=== PATIENT | male | born 1980 | race Caucasian/White ===

== ENCOUNTER 2019-01-11 00:41 | Emergency (ER) | payer SELFPAY ==
[~2019-01-11] VITALS: Ht 175.3 cm; Wt 68.2 kg
[2019-01-11 00:45] VITALS: Ht 175.3 cm; Wt 68.2 kg
[2019-01-11] MEDS ORDERED: XANAX1 MG PO (00:46)
[2019-01-11] MEDS ORDERED: HYDROCODONE-A1 UDTA2 PO (01:32)
[2019-01-11 02:10] VITALS: BP 130/91
[2019-01-14 10:13] VITALS: Ht 175.3 cm; Wt 68.2 kg
== END 2019-01-11 02:02 | disposition home or self-care (01) ==
LOC: D.ER 00:41
DX: S62.331A Displaced fracture of neck of second metacarpal bone, left hand, initial encounter for closed fracture (principal); X58.XXXA Exposure to other specified factors, initial encounter; Y93.89 Activity, other specified; Y92.89 Other specified places as the place of occurrence of the external cause

== ENCOUNTER 2019-01-14 09:10 | Day surgery (SDC) | payer SELFPAY ==
[~2019-01-14] VITALS: Ht 175.3 cm; Wt 65.8 kg
[~2019-01-14 09:10] MED LIST: HYDROCODONE-A1 UDTA2 PO; XANAX1 MG PO
[2019-01-14] MEDS ORDERED: TOPROL XL50 MG PO (10:06)
[2019-01-14 10:13] VITALS: Ht 175.3 cm; Wt 65.8 kg
[2019-01-14] MEDS ORDERED: PERCOCET 5-3251 TAB PO (12:16)
[2019-01-14] MEDS ORDERED: VISTARIL50 MG PO (12:17)
[2019-01-14] MEDS ORDERED: DURICEF500 MG PO (12:17)
--- NOTE | 2019-01-14 14:09 | NUR ---
1330 PT C/O SEVERE PAIN IN HAND AND ASKING FOR PAIN MEDICATION.
--- NOTE | 2019-01-14 14:30 | NUR ---
PT DC INSTRUCTIONS REVIEWED AT THIS TIME, PT VERBALIZES UNDERSTANDING. PT IV REMOVED AT THIS TIME, INTACT NO REDNESS OR SWELLING NOTED AT SITE.
--- NOTE | 2019-01-14 14:41 | NUR ---
PT LEAVING OPS AT THIS TIME VIA WC. NAD NOTED.
--- NOTE | 2019-01-15 08:32 | OP ---
PATIENT NAME: ENEDINA TURCIOS MEDICAL RECORD: [id number] :80 LOCATION:[facility] ADMISSION DATE: SURGEON: KODY KENNY DO DATE OF OPERATION: 01/14/2019 PROCEDURE PERFORMED: Left second metacarpal open reduction internal fixation. PREOPERATIVE DIAGNOSIS: Left second metacarpal comminuted intra-articular displaced fracture of the distal second metacarpal. POSTOPERATIVE DIAGNOSIS: Left second metacarpal comminuted intra-articular displaced fracture of the distal second metacarpal. INDICATIONS: Mr. Turcios is a 38-year-old male who sustained a fracture, unknown how, exactly to the second metacarpal, which displaced into the head. Head was displaced as well on the articular split Sunday. I gave him the option of staying in the hospital and get him fixed or have it done outpatient and he chose to do outpatient today. He was informed of the risks including infection, bleeding, malunion, nonunion, need for further surgery, and continued pain and he was okay with that as well as the risks for blood clots and even and he signed the consent. SURGEON: Kody Kenny DO DESCRIPTION OF PROCEDURE: The patient was taken to the operative suite, laid in supine position, given general anesthetic. The left upper extremity was prepped and draped in sterile fashion. A timeout was performed and everyone was in agreement with the correct side, site, patient and procedure. Once that was performed, the x-ray was brought in, the C-arm, and seen as a very comminuted fracture and would not be amenable to pin fixation, closed reduction and percutaneous pinning and decided to do open. The left upper extremity was then exsanguinated with Esmarch and tourniquet was inflated to 250 mmHg, was up for 62 minutes total. The incision then was made over the second metacarpal down to the joint just over the MCP joint. The extensor tendon was taken ulnarly and then eventually had to be split down to access the joint, which was closed later. Once the fracture was assessed and seen, it had the intra-articular split and this needed to be reduced. Once we got good reduction, plate was put on, a [employer] plate, and 2 screws were put in distally securing the head and having nice reduction of the joint line. The 3 screws were then put in the shaft and the comminution was bridged and then a compression screw was placed from radial to ulnar and the larger piece that was fractured off securing it into place. X-rays were taken. These screws were all confirmed to be in good position on AP and lateral and not to be through the bone or too long. They were all locked on to the plate except for the one free screw. Once in good position, the tourniquet was let down and pressure was held to stop the bleeding. The capsule and the extensor tendon was then closed with 4-0 Ethibond in a [id number] and simple interrupted fashion. The skin was then closed with 3-0 Vicryl in inverted interrupted fashion and 5-0 Monocryl ran on the skin. Steri-Strips, Adaptic, 4 x 4, cast padding and a 3 x 12 splint was placed volarly to the PIP joint of the index and long finger and along the radial side of the wrist volarly and secured in place with an Jadon wrap. Blood loss approximately 25 mL. COMPLICATIONS: None. OPERATIVE REPORT [id number] ENEDINA TURCIOS TRANSINT:[id number] Voice Confirmation ID: [id number] DOCUMENT ID: [id number] KODY KENNY DO at 0832 CC: [id number] DICTATION DATE: 01/14/19 1224 [employer] SUPERVISOR: 01/14/19 1241 [facility] 01/14/19 [facility] [address] [place] [address]
== END 2019-01-14 14:41 | disposition home or self-care (01) ==
LOC: D.OPS 09:10
PROVIDERS: ATTEND Orthopaedic Surgery
DX: S63.291A Dislocation of distal interphalangeal joint of left index finger, initial encounter (principal); X58.XXXA Exposure to other specified factors, initial encounter

== ENCOUNTER 2019-03-18 14:11 | Day surgery (SDC) | payer MEDICAID ==
[~2019-03-18] VITALS: Ht 175.3 cm; Wt 68.0 kg
[~2019-03-18 14:11] MED LIST changes: +DURICEF500 MG PO; +PERCOCET 5-3251 TAB PO; +TOPROL XL50 MG PO; +VISTARIL50 MG PO
[2019-03-18 14:32] VITALS: BP 111/76; Ht 175.3 cm; Wt 68.0 kg
[2019-03-18] MEDS ORDERED: DURICEF500 MG PO (17:14)
[2019-03-18] MEDS ORDERED: TORADOL10 MG PO (17:15)
--- NOTE | 2019-03-18 18:56 | NUR ---
174 ARRIVED TO ROOM, SLIGHTLY DROWSEY WITH C/O PAIN TO LEFT HAND. GOOD SENSATION TO ALL DIGITS EXCEPT INDEX FINGER. ABLE TO WIGGLE ALL. DRESSING CDI. ARM ELEVATED BY PT. MEDICATED PT WITH IV TORDOL. 1799 PT REQUESTED SOMETHING PO FOR PAIN. DR KENNY CALLED AND ORDERS GIVEN. 1814 MEDICATED PO PAIN. INSTRUCTIONS GIVEN AND PT VOIDED IN BATHROOM 1829 IV REMOVED AND PRESSURE HELD
--- NOTE | 2019-03-19 12:44 | OP ---
PATIENT NAME: ENEDINA TURCIOS MEDICAL RECORD: [id number] :80 LOCATION:[facility] ADMISSION DATE: SURGEON: BOONE KENNY DO DATE OF OPERATION: 03/18/2019 PROCEDURE PERFORMED: Left second metacarpal removal of hardware and lysis of adhesions of the extensor tendon with MCP manipulation. 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 INDICATIONS: Mr. Turcios is a 38-year-old male that underwent open reduction and internal fixation for a comminuted intra-articular distal metacarpal fracture of the second metacarpal a couple of months ago. He did not show up to clinic for the first postop appointment where we would remove the splint and got moving his fingers, but he did show up a few weeks late. He started trying to move it, but he had developed adhesions already in the MCP joint, second metacarpal. He could only flex about 10 degrees. Once this did not get better, we tried physical therapy and he tried dealing on his own. He wanted something done as he is tired of dealing with it. The fracture had sufficiently healed, we told him we would remove the hardware and do a lysis of adhesions and manipulation. He was okay with that. Aware of the risks of fracture, need for further surgery, the adhesions coming back, loss of motion of the hand, infection, and he signed the consent. SURGEON: Boone Kenny DO DESCRIPTION OF PROCEDURE: The patient was taken to the operative suite, laid in the supine position, given general anesthetic and LMA was placed, given 1 gram of Ancef preoperatively. The left upper extremity was then exsanguinated with an Esmarch and tourniquet was inflated to 250 mmHg, was up for approximately 40 minutes. The gentle dissection was made down in through the skin to the extensor tendon. The extensor tendon was split where it had been split before and the hardware was removed. The -2 screws that were used in the bone to hold the fracture pieces. The adhesions were then taken down all through the extensor tendon and he still had a contracture at that point, I did a manipulation of the MCP joint and fluid had rushed out of the site and unknowing if it was a cyst or what it was. He got full flexion of the MCP joint at that time and then the extensor tendon had been split and was reapproximated carefully with a 4-0 Ethibond in a simple and [id number] fashion. The finger was then ranged again after that had been closed and it ranged very well at the MCP joint. The site was then closed with 4-0 Monocryl in inverted interrupted fashion and 5-0 Monocryl ran on the skin. Steri-Strips were then placed on it and Adaptic, 4 x 4s and then wrapped with Coban. He was then awakened and taken to the recovery in stable condition. BLOOD LOSS: Minimal. OPERATIVE REPORT [id number] ENEDINA TURCIOS COMPLICATIONS: None. The site was injected with 0.25% Marcaine with epinephrine, 10 mL of it prior to closure. TRANSINT:[id number] Voice Confirmation ID: [id number] DOCUMENT ID: [id number] BOONE KENNY DO at 1244 CC: [id number] DICTATION DATE: 03/18/19 171 SIDE PANEL HANGER: 03/19/19 0517 [facility] 03/18/19 [id number] [place] [address]
== END 2019-03-18 18:52 | disposition home or self-care (01) ==
LOC: D.OPS 14:11 → D.PAN 17:15 → D.OPS 18:10
PROVIDERS: ATTEND Orthopaedic Surgery
DX: T84.84XA Pain due to internal orthopedic prosthetic devices, implants and grafts, initial encounter (principal); X58.XXXA Exposure to other specified factors, initial encounter; M24.642 Ankylosis, left hand